=== PATIENT | male | born 1990 | race Caucasian/White ===

== ENCOUNTER 2023-06-03 14:59 | Emergency (ER) | payer BC, SELFPAY ==
[2023-06-03 15:02] VITALS: BP 137/84; PULSE 77; RESP 18; TEMP 35.9; O2SAT 99; BMI 28.1
--- NOTE | 2023-06-03 15:56 | ED_ITS ---
HPI - General Adult General Chief complaint: Back Injury/Pain Stated complaint: Lower back pain, shooting down legs Time Seen by Provider: 06/03/23 15:55 History of Present Illness HPI narrative: c/o L1,L2 back pain with pain radiating down bilateral legs. pt tweaked something yesterday playing softball. states difficulty walking. pt took advil 1000 without relief , ice 33-year-old man presenting to the emergency department with complaint of radicular back pain. He was running playing softball yesterday and tweaked something. There was no fall or impact otherwise. Has been trying treatment with ibuprofen and icing. Does have a history of lumbar back pain with rad icular symptoms in the past. Has had epidurals. It sounds as though there was some herniation of the disc at L1, L2. He has sharp and achy pain radiating around his hips to his groins bilaterally. Hurts to walk, exacerbating his pain. This is worse than he recalls in the past. Distribution is similar. No loss of bowel or bladder control Related Data Home Medications Medication Instructions Recorded Confirmed cyclobenzaprine 10 mg tablet mg PO 06/08/23 06/08/23 oxycodone-acetaminophen 5 mg-325 tab PO 06/08/23 06/08/23 mg tablet prednisone 20 mg tablet 40 mg PO BID 06/08/23 06/08/23 Allergies Allergy/AdvReac Type Severity Reaction Status Date / Time No Known Drug Allergies Allergy Verified 06/08/23 09:06 Review of Systems Status of ROS: Reports: 6 or more systems reviewed and unremarkable except as noted in History and below PFSH PFS Surgical History History of surgery ?Z98.890 - Other specified postprocedural states (ICD-10) Status post appendectomy ?Z90.49 - Acquired absence of other specified parts of digestive tract (ICD- 10) Family History (Updated 06/07/23 @ 12:35 by Zion Mobley) Other Diabetes Social History Smoking Status: Never smoker Do you use any of these nicotine containing products: None Second hand tobacco smoke exposure: No How often do you have a drink containing alcohol: never How often do you have six or more drinks on one occasion: Never AUDIT-C Alcohol total score: 0 Non-prescribed substance use: denies use service: No Exam Narrative: Exam Narrative: Is very pleasant. Seated gingerly on the bed. Well muscled. Clearly very uncomfortable with transitions. Tries his best to help with exam. Not really with reproducible pain to palpation of the back. Upper buttock musculature a little sore perhaps on the right. Can flex forward changes to fully seated as noted. Limited extension. Straight leg raise seems to be positive. He has good strength to resisted flexion and extension of the thigh. Pain is elicited with flexion at the knee on the right in particular. Good strength to dorsiflexion and plantar flexion at the ankle. Const: Vital Signs, click to edit/add: Vital Signs - 24 hr 06/03/23 15:02 Temperature 96.7 F L Pulse Rate [Pulse Oximeter] 77 Respiratory Rate 18 Blood Pressure [Ri ght Upper Arm] 137/84 Pulse Oximetry 99 Oxygen Delivery Me thod Room Air Documenting provider has reviewed patient's vital signs: yes Course Vital Signs Vital signs: Initial Vital Signs Temperature 96.7 F L 06/03/23 15:02 Temperature Source Temporal Artery Scan 06/03/23 15:02 Pulse Rate 77 06/03/23 15:02 Respiratory Rate 18 06/03/23 15:02 Blood Pressure 137/84 06/03/23 15:02 Blood Pressure Mean 101 06/03/23 15:02 Blood Pressure Position Supine 06/03/23 15:02 Pulse Oximetry 99 06/03/23 15:02 Oxygen Delivery Method Room Air 06/03/23 15:02 Vital Signs Temperature 96.7 F L 06/03/23 15:02 Pulse Rate 77 06/03/23 15:02 Respiratory Rate 18 06/03/23 15:02 Blood Pressure 137/84 06/03/23 15:02 Pulse Oximetry 99 06/03/23 15:02 Oxygen Delivery Method Room Air 06/03/23 15:02 Temperature 96.7 F L 06/03/23 15:02 Pulse Rate 77 06/03/23 15:02 Respiratory Rate 18 06/03/23 15:02 Blood Pressure 137/84 06/03/23 15:02 Pulse Oximetry 99 06/03/23 15:02 Oxygen Delivery Method Room Air 06/03/23 15:02 Medical Decision Making MDM Narrative Medical decision making narrative: Without more significant traumatic event I do not think x-ray imaging would be particularly helpful here though admittedly potentially part of a workup going forward should further treatment be needed. Will focus on treating his pain at this point. Does seem to have radicular symptoms with a history of same. I think would benefit from a course of prednisone and temporary pain management. See patient discharge plan Discharge Plan Discharge Clinical Impression: Lumbar radiculopathy Patient Disposition: Home, Self-Care Condition: Stable Additional Instructions: Continue to stay well-hydrated. See handout on stretches for the back. It sounds like it would be a good idea to establish/reestablish primary care to help facilitate medical cares; assisted with pain medications for example if necessary. Dr. Alexander locally does do injections of that is what you would like to start with. He is at the [facility] in [place]. Percocet, prednisone, cyclobenzaprine from [facility]. Take the prednisone as 60 mg daily for 3 days then 40 mg daily for 3 days then 20 mg daily for 3 days. Prescriptions: No Action oxycodone-acetaminophen 5-325 mg tablet PO prednisone 20 mg tablet 40 mg PO BID cyclobenzaprine 10 mg tablet PO Follow Up/Referrals: Demario Raymond MD [Primary Care Provider] - Stand Alone Forms: [employer] Info Instructions
== END 2023-06-03 17:05 | disposition home or self-care (01) ==
PROVIDERS: Emergency Provider Family Medicine; PCP Family Medicine
DX: M54.16 Radiculopathy, lumbar region (principal)
CPT/HCPCS: 99283